=== PATIENT | male | born 1950 | race Caucasian/White ===

== ENCOUNTER 2017-03-16 09:36 | Emergency (ER) | payer MEDICARE, OTHER ==
[~2017-03-16] VITALS: Ht 175.3 cm; Wt 98.9 kg
[~2017-03-16 09:36] MED LIST: MSL400TEC; OMEP20CA12; PREDNISONE; PRX20T; SIMV40TA2
[2017-03-16] MEDS ORDERED: ASPIRIN 81 MG CHEW (CHILDREN'S ASA) PO ONE (09:45)
[2017-03-16] MEDS ORDERED: RX-NITROGLYCERIN 0.4 MG TAB BTL 25'S SL ONE (09:45)
[2017-03-16 09:55] LABS: BASOPHILS % (AUTO) 0 % (0-10); EOSINOPHILS # (AUTO) 0.2 10^3/uL (0.0-0.3); EOSINOPHILS % (AUTO) 3 % (0-10); LYMPHOCYTES # (AUTO) 2.4 X 10^3 (1.0-4.0); LYMPHOCYTES % (AUTO) 40 % (12-44); MEAN CORPUSCULAR HEMOGLOBIN 30 PG (25-34); MEAN CORPUSCULAR HGB CONC 33 G/DL (32-36); MEAN CORPUSCULAR VOLUME 89 FL (80-99); MEAN PLATELET VOLUME 9.1 FL (7.4-10.4); MONOCYTES # (AUTO) 0.4 X 10^3 (0.0-1.0); MONOCYTES % (AUTO) 8 % (0-12); NEUTROPHILS # (AUTO) 2.9 X 10^3 (1.8-7.8); NEUTROPHILS % (AUTO) 49 % (42-75); PLATELET COUNT 270 10^3/uL (130-400); RED CELL DISTRIBUTION WIDTH 13.2 % (10.0-14.5); WHITE BLOOD COUNT 5.8 10^3/uL (4.3-11.0)
[2017-03-16] MEDS ORDERED: RX-NITROGLYCERIN 0.4 MG TAB BTL 25'S SL PRN (10:00)
[2017-03-16 10:12] LABS: INR 0.9 (0.8-1.4); PROTHROMBIN TIME PATIENT 12.2 SEC (12.2-14.7)
--- NOTE | 2017-03-16 10:12 | ED Chest Pain ---
General Chief Complaint: Chest Pain Stated Complaint: CP Nursing Triage Note: PT TO ROOM 5 SENT TO ED BY [facility], PT HAVING CHEST PAIN FOR A FEW DAYS HAS TIGHTNESS AND WEAKNESS IN ARMS BILATERALLY. Nursing Sepsis Screen: No Definite Risk Source: patient Exam Limitations: no limitations History of Present Illness Time seen by provider: 09:37 Initial Comments Here with report of central chest pressure and bilateral arm weakness that has occurred several times over the last week and usually only lasts for less than a minute but today is lasted for some time up to an hour. Does report some dizziness but no nausea or vomiting. Denies diaphoresis. Did present to the [facility] and was sent here for further evaluation related to the chest pain. States that he still has some mild discomfort currently. Timing/Duration: 1 week, intermittent Severity/Quality: mild, moderate, pressure, tightness Location: central Radiation: arms Activities at Onset: none Prior CP/Workup: cardiac cath Modifying Factors: improves with rest ASA po ENVIRONMENTAL ENGINEERING INTERN: No NTG SL ENVIRONMENTAL ENGINEERING INTERN: No Associated Symptoms: No back pain, No shortness of breath Allergies and Home Medications Allergies Coded Allergies: Codeine (Verified Allergy, Unknown, 03/17/08) Home Medications Mesalamine 400 Mg Tab, (Reported) Omeprazole 20 Mg Capsule., (Reported) Simvastatin 40 Mg Tablet, (Reported) Review of Systems Constitutional: see HPI, No chills, No fever EENTM: No Symptoms Reported Respiratory: No Symptoms Reported Cardiovascular: No Symptoms Reported Gastrointestinal: See HPI, Abdominal Pain, Diarrhea, Nausea, Vomiting Genitourinary: No Symptoms Reported Musculoskeletal: no symptoms reported Skin: no symptoms reported All Other Systems Reviewed Negative Unless Noted: Yes Past Kcijhnt-Lzgjbs-Hzbmmw Hx Patient Social History Alcohol Use: Denies Use Recreational Drug Use: No Smoking Status: Never a Smoker Recent Foreign Travel: No Contact w/Someone Who Travel: No Recent Infectious Disease Expo: No Recent Hopitalizations: No Surgeries HX Surgeries: No Respiratory Hx Respiratory Disorders: No Cardiovascular Hx Cardiac Disorders: Yes Cardiac Disorders: Hypertension Neurological Hx Neurological Disorders: Yes Reproductive System Hx Reproductive Disorders: No Genitourinary Hx Genitourinary Disorders: No Gastrointestinal Hx Gastrointestinal Disorders: Yes Gastrointestinal Disorders: Gastroesophageal Reflux Musculoskeletal Hx Musculoskeletal Disorders: Yes Endocrine Hx Endocrine Disorders: No HEENT HX ENT Disorders: Yes Psychosocial Hx Psychiatric Problems: Yes Blood Transfusions Hx Blood Disorders: Yes Reviewed Nursing Assessment Reviewed/Agree w Nursing PMH: Yes Family Medical History Significant Family History: No Pertinent Family Hx Physical Exam Vital Signs Vital Sign - Last 12Hours 03/16/17 09:40 Temp 96.9 Pulse 73 Resp 18 B/P (MAP) 165/82 Pulse Ox 98 Capillary Refill : Less Than 3 Seconds General Appearance: No Apparent Distress, WD/WN HEENT: PERRL/EOMI, Pharynx Normal Neck: Non Tender, Supple Respiratory: Lungs Clear, Normal Breath Sounds Cardiovascular: Regular Rate, Rhythm, No Murmur Gastrointestinal: Non Tender, Soft Extremity: Normal Range of Motion, Non Tender Neurologic/Psychiatric: Alert, Oriented x3 Skin: Normal Color, Warm/Dry Progress/Results/Core Measures Results/Orders Lab Results Laboratory Tests Test 03/16/17 09:40 03/16/17 12:30 Range/Units White Blood Count 5.8 4.3-11.0 10^3/uL Red Blood Count 5.10 4.35-5.85 10^6/uL Hemoglobin 15.1 13.3-17.7 G/DL Hematocrit 45 40-54 % Mean Corpuscular Volume 89 80-99 FL Mean Corpuscular Hemoglobin 30 25-34 PG Mean Corpuscular Hemoglobin Concent 33 32-36 G/DL Red Cell Distribution Width 13.2 10.0-14.5 % Platelet Count 270 130-400 10^3/uL Mean Platelet Volume 9.1 7.4-10.4 FL Neutrophils (%) (Auto) 49 42-75 % Lymphocytes (%) (Auto) 40 12-44 % Monocytes (%) (Auto) 8 0-12 % Eosinophils (%) (Auto) 3 0-10 % Basophils (%) (Auto) 0 0-10 % Neutrophils # (Auto) 2.9 1.8-7.8 X 10^3 Lymphocytes # (Auto) 2.4 1.0-4.0 X 10^3 Monocytes # (Auto) 0.4 0.0-1.0 X 10^3 Eosinophils # (Auto) 0.2 0.0-0.3 10^3/uL Basophils # (Auto) 0.0 0.0-0.1 10^3/uL Prothrombin Time 12.2 12.2-14.7 SEC INR Comment 0.9 0.8-1.4 Activated Partial Thromboplast Time 28 24-35 SEC D-Dimer 0.30 0.00-0.49 UG/ML Sodium Level 139 135-145 MMOL/L Potassium Level 3.9 3.6-5.0 MMOL/L Chloride Level 105 98-107 MMOL/L Carbon Dioxide Level 24 21-32 MMOL/L Anion Gap 10 5-14 MMOL/L Blood Urea Nitrogen 15 7-18 MG/DL Creatinine 1.13 0.60-1.30 MG/DL Estimat Glomerular Filtration Rate > 60 BUN/Creatinine Ratio 13 Glucose Level 92 70-105 MG/DL Calcium Level 10.0 8.5-10.1 MG/DL Magnesium Level 2.3 1.8-2.4 MG/DL Total Bilirubin 0.5 0.1-1.0 MG/DL Aspartate Amino Transf (AST/SGOT) 27 5-34 U/L Alanine Aminotransferase (ALT/SGPT) 23 0-55 U/L Alkaline Phosphatase 76 40-136 U/L Myoglobin 72.9 55.6 10.0-92.0 NG/ML Troponin I < 0.30 < 0.30 <0.30 NG/ML Total Protein 7.7 6.4-8.2 GM/DL Albumin 4.8 H 3.2-4.5 GM/DL My Orders Orders - FREEMAN GARZON MD Cbc With Automated Diff (03/16/17 09:39) Magnesium (03/16/17 09:39) Chest 1 View, Ap/Pa Only (03/16/17 09:39) Ekg Tracing (03/16/17 09:39) Cardiac Profile 1 (03/16/17 09:39) Comprehensive Metabolic Panel (03/16/17 09:39) Myoglobin Serum (03/16/17 09:39) Protime With Inr (03/16/17 09:39) Partial Thromboplastin Time (03/16/17 09:39) O2 (03/16/17 09:39) Monitor-Rhythm Ecg Trace Only (03/16/17 09:39) Lipid Panel (03/17/17 06:00) Saline Lock/Iv-Start (03/16/17 09:39) Fibrin Degradation Products (03/16/17 09:39) Aspirin Chewable Tablet (Baby Aspirin Ch (03/16/17 09:45) Rx-Nitroglycerin Sl Tabs (Rx-Nitrostat S (03/16/17 09:45) Rx-Nitroglycerin Sl Tabs (Rx-Nitrostat S (03/16/17 10:00) Troponin I (03/16/17 12:31) Ekg Tracing (03/16/17 12:31) Myoglobin Serum (03/16/17 12:31) Medications Given in ED Current Medications Medications Dose Ordered Sig/Jesus Route Start Time Stop Time Status Last Admin Dose Admin Aspirin 324 mg ONCE ONCE PO 03/16/17 09:45 03/16/17 09:46 DC 03/16/17 09:00 324 MG Vital Signs/I&O Vital Sign - Last 12Hours 03/16/17 09:40 Temp 96.9 Pulse 73 Resp 18 B/P (MAP) 165/82 Pulse Ox 98 Blood Pressure Mean: 109 Progress Note : Progress Note Seen and evaluated. IV, labs, EKG and chest x-ray ordered. ASA 324 mg by mouth ordered. Nitroglycerin sublingual ordered. Monitor patient. Monitored patient throughout ER stay. 1115: No acute findings and no return of pain. Labs negative. Patient does not really want to stay as [facility] We will do repeat troponin and EKG at 1230. 1335: Repeat EKG and troponin as well as myoglobin and evaluated. No acute findings and no elevations noted. Discharged home with return precautions. Patient counseled extensively on the need for follow-up. Also recommended baby aspirin daily until seen by his doctor. Patient verbalize understanding instructions and agreement with plan. ECG Initial ECG Impression Date: Mar 16, 2017 Initial ECG Impression Time: 09:42 Initial ECG Rate: 71 Initial ECG Rhythm: Normal Sinus Initial ECG Impression: Normal Initial ECG Comparisson: Unchanged Comment Sinus rhythm with normal axis. No evidence of ST elevation NC. Similar to previous of 05/13/2008. Interpreted by me. EKG : EKG Time: 12:39 Rate: 53 Rhythm: Normal Sinus ECG Comparisson: Unchanged ECG Impression: Normal Comment Normal sinus rhythm with normal axis. No evidence of ST elevation NC. Similar to previous. Interpreted by me. Departure Impression Impression: Primary Impression: Chest pain Qualified Codes: R07.9 - Chest pain, unspecified Disposition: 01 HOME, SELF-CARE Condition: Stable Departure-Patient Inst. Decision time for Depature: 13:12 Referrals: [facility] (PCP/Family) Primary Care Physician DANTE MCCLELLAND MD FACP [facility] CCDS Sirisha FUENTES MD, BASHAR J MD Patient Instructions: Chest Pain (DC) Add. Discharge Instructions: All discharge instructions reviewed with patient and/or family. Voiced understanding. Continue home medications as directed. [facility] and set up appointment for further evaluation of your chest pain including stress test and/ or heart catheter procedure as needed. You may follow-up with Dr. Mcclelland or one of the other line fixer listed if [facility] approves. You should be seen within one week regardless of which system review follow-up in. Return for worse pain , fever, vomiting, weakness, breathing problems or other concerns as needed. FREEMAN GARZON MD Mar 16, 2017 10:12
[2017-03-16 10:22] LABS: ALANINE AMINOTRANSFERASE 23 U/L (0-55); ALBUMIN 4.8 GM/DL (3.2-4.5); ANION GAP 10 MMOL/L (5-14); ASPARTATE AMINO TRANSFERASE 27 U/L (5-34); BILIRUBIN,TOTAL 0.5 MG/DL (0.1-1.0); BLOOD UREA NITROGEN 15 MG/DL (7-18); BUN/CREATININE RATIO 13; CARBON DIOXIDE 24 MMOL/L (21-32); CHLORIDE 105 MMOL/L (98-107); CREATININE SERUM 1.13 MG/DL (0.60-1.30); GFR ESTIMATED > 60; GLUCOSE 92 MG/DL (70-105); MAGNESIUM 2.3 MG/DL (1.8-2.4); POTASSIUM 3.9 MMOL/L (3.6-5.0); SODIUM 139 MMOL/L (135-145); TOTAL PROTEIN 7.7 GM/DL (6.4-8.2)
--- NOTE | 2017-03-16 10:27 | Diagnostic Imaging Report ---
EXAMINATION: Portable erect AP chest at 1006h. INDICATION: Chest pain The heart size is within normal limits and stable when compared to 03/17/08. The coarse perihilar markings seen on the previous study are again evident and no different. There is still no sign of failure, pneumonia or pleural effusion to suggest an acute abnormality. The mediastinum is not widened. The osseous structures are intact. IMPRESSION: There is no evidence for active disease. Dictated by: Dictated on workstation # [id number]
[2017-03-16 10:31] LABS: MYOGLOBIN SERUM 72.9 NG/ML (10.0-92.0)
[2017-03-16 13:10] LABS: MYOGLOBIN SERUM 55.6 NG/ML (10.0-92.0); TROPONIN I < 0.30 NG/ML (<0.30)
[2017-03-16 13:44] VITALS: BP 165/82
== END 2017-03-16 13:44 | disposition home or self-care (01) ==
LOC: EDUNIT# 09:36 → ER 09:39
DX: R07.89 Other chest pain (principal); I10 Essential (primary) hypertension; K21.9 Gastro-esophageal reflux disease without esophagitis
CPT/HCPCS: 36415; 71010; 80053; 83735; 83874; 84484; 85025; 85379; 85610; 85730; 93041

== ENCOUNTER 2017-03-22 12:00 | Day surgery (SDC) | payer MEDICARE, OTHER ==
[~2017-03-22] VITALS: Ht 175.3 cm; Wt 100.7 kg
[2017-03-22] VITALS (7 sets, daily range): BP systolic 115–131; BP diastolic 41–67
[2017-03-22] MEDS ORDERED: NS IV 1000 ML 1,000 ML ONE (12:10)
[2017-03-22] MEDS ORDERED: HEParin (CATH LAB) 2,000 ML IV ONE (12:10)
--- OUTSIDE RECORDS SUMMARY | 2017-03-22 12:27 | XMS REPORT | Continuity of Care Document ---
Author Author [facility] Address Unknown Phone Unavailable Allergies Active Description Code Type Severity Reaction Onset Reported/Identified Relationship to Patient Clinical Status Yes codeine Drug Allergy N/A N/A 11/25/2014 Medications Problems Date Dx Coded Attending Type Code Diagnosis Diagnosed By 11/25/2014 MARILYN PEOPLES APRN 461.9 SINUSITIS ACUTE 11/25/2014 MARILYN PEOPLES APRN 786.2 COUGH Procedures Results Encounters ACCT No. Visit Date/Time Discharge Status Pt. Type Provider Facility Loc./Unit Complaint [id number] 11/25/2014 13:15:00 11/25/2014 23: 59:59 CLS Outpatient MARILYN PEOPLES APRN
[2017-03-22] MEDS ORDERED: NS IV 1000 ML 1,000 ML IV SCH ×2 (12:30→18:11)
[2017-03-22 12:43] LABS: MEAN PLATELET VOLUME 9.4 FL (7.4-10.4); RED BLOOD COUNT 4.96 10^6/uL (4.35-5.85); RED CELL DISTRIBUTION WIDTH 13.3 % (10.0-14.5); WHITE BLOOD COUNT 7.7 10^3/uL (4.3-11.0)
[2017-03-22 12:54] LABS: INR 0.9 (0.8-1.4); PROTHROMBIN TIME PATIENT 12.4 SEC (12.2-14.7)
[2017-03-22] MEDS ORDERED: ASPI-586 PO (13:02)
[2017-03-22] MEDS ORDERED: METO-352 PO (13:02)
[2017-03-22 13:03] LABS: ALANINE AMINOTRANSFERASE 19 U/L (0-55); ALBUMIN 4.4 GM/DL (3.2-4.5); ANION GAP 11 MMOL/L (5-14); ASPARTATE AMINO TRANSFERASE 21 U/L (5-34); BILIRUBIN,TOTAL 0.4 MG/DL (0.1-1.0); BLOOD UREA NITROGEN 19 MG/DL (7-18); BUN/CREATININE RATIO 16; CALCIUM 9.4 MG/DL (8.5-10.1); CARBON DIOXIDE 23 MMOL/L (21-32); CHLORIDE 107 MMOL/L (98-107); CHOLESTEROL 200 MG/DL (< 200); CREATININE SERUM 1.17 MG/DL (0.60-1.30); DIRECT LDL 129 MG/DL (1-129); GFR ESTIMATED > 60; GLUCOSE 94 MG/DL (70-105); POTASSIUM 4.2 MMOL/L (3.6-5.0); SODIUM 141 MMOL/L (135-145); TRIGLYCERIDES 101 MG/DL (<150); VLDL CHOLESTEROL 20 MG/DL (5-40)
[2017-03-22] MEDS ORDERED: MIDAZOLAM 5 MG/5 ML (VERSED) VIAL ONE (16:31)
[2017-03-22] MEDS ORDERED: diphenhydrAMINE 50 MG/ML INJ (BENADRYL) ONE (16:31)
[2017-03-22] MEDS ORDERED: fentaNYL INJECTION 100 MCG/2 ML AMP ONE (16:31)
--- NOTE | 2017-03-22 17:20 | Cardiac Procedure Note-CS/ASA ---
Pre-Procedure Note Pre-Op Procedure Note H&P Reviewed The H&P was reviewed, patient examined and no changes noted. Date H&P Reviewed: Mar 22, 2017 Time H&P Reviewed: 17:20 Conscious Sedation Pre-Proced Time Reviewed: 17:20 ASA Class: 2 Airway Mallampati Classification: ([place] ore[place] appropriate class) I. II. III, IV Lungs Heart ASA score ASA 1: a normal healthy patient ASA 2: a patient with a mild systemic disease (mid diabetes, controlled hypertension, obesity ASA 3: a patient with a severe systemic disease that limits activity (angina , COPD, prior Myocardial infarction) ASA 4: a patient with an incapacitating disease that is a constant threat to life (CHF, renal failure) ASA 5: a moribund patient not expected to survive 24 hrs. (ruptured aneurysm) ASA 6: a declared brain patient whose organs are being harvested. For emergent operations, add the letter E after the classification Grade 2 Sedation Plan: Analgesia, Amnesia, Plan communicated to team members, Discussed options with patient/fam, Discussed risks with patient/fam Note The patient is an appropriate candidate to undergo the planned procedure, sedation, and anesthesia. The patient immediately re-assessed prior to indication. DANTE ARMSTRONG MD FACP [facility]S Mar 22, 2017 17:20
[2017-03-22] MEDS ORDERED: PATIENT MAY USE OWN MEDS, ALL PO SCH (18:15)
--- NOTE | 2017-03-22 18:16 | Discharge Inst-Post CATH ---
Discharge Inst-CATH Post Cardiac Cath D/C Inst Follow Up/Plan F/u with Dr Mcclelland in 1-2 weeks CARDIAC CATH DISCHARGE INSTRUCTIONS *Hold Metformin for 48 hours post heart cath. ACTIVITY * Go Home directly and rest. * Limit activity of the leg (or wrist if it was used) for 7 days including aerobics, swimming, jogging, bicycling, etc. * Restrict stair-climbing for 7 days if possible, if not, climb up with your non -cath leg, then bring together on the same step. * Avoid lifting, pushing, pulling or excessive movement of the affected extremity for 7 days. * Customary sexual activity may be resumed after 2 days-use caution not to use a position that strains or causes pain to the affected extremity. * No driving for 24 hours. * NO SMOKING. * Avoid straining for bowel movements for 7 days. * Gentle walking on level ground is allowed. * Returning to work will depend on the type of procedure and the results. Your doctor will discuss this with you. CALL YOUR DOCTOR FOR ANY OF THE FOLLOWING: *If bleeding from the puncture site occurs- Apply gentle pressure to site with clean cloth and call your doctor or EMS. * If a knot or lump forms under the skin, increases in size, or causes pain. * If bruising appears to be worsening or moving further down your leg instead of disappearing. * Temperature above 101 F. CARE OF YOUR GROIN INCISION; * Bruising or purple discoloration of the skin near the puncture site is common. * You may shower only, no bathtub bathing for 5 days. Be careful to avoid slipping as your leg may feel stiff. * If a closure device was used on your femoral artery, please see the attached guide regarding care of the device and your leg. * REMOVE the dressing from your groin the next day after your procedure in the shower. CARE OF YOUR WRIST INCISION; * Bruising or purple discoloration of the skin near the puncture site is common. * You may shower. * DO NOT submerge wrist. * Remove dressing in 24 hours. DANTE MCCLELLAND MD [facility] Mar 22, 2017 18:16
--- NOTE | 2017-03-22 18:17 | Discharge Inst-Cardiology ---
Discharge Inst-Cardiac Discharge Medications Continued Medications: Aspirin (Aspir 81) 81 Mg Tablet. 81 MG PO DAILY, TAB Metoprolol Succinate (Toprol Xl) 50 Mg Tab.er.24h 50 MG PO DAILY, TAB Omeprazole (Omeprazole) 20 Mg Capsule. Simvastatin (Zocor) 40 Mg Tablet DANTE ARMSTRONG MD FACP [facility] Mar 22, 2017 18:17
--- NOTE | 2017-03-22 20:10 | CARDIAC CATHETERIZATION ---
DATE OF SERVICE: 03/22/2017 HISTORY OF PRESENT ILLNESS: The patient is a 66-year-old man with coronary risk factors who has been experiencing chest discomfort and some symptoms suggestive of new onset angina. Cardiac catheterization was carried out today after having obtained informed consent. PROCEDURE: He was brought to the cardiac catheterization laboratory in a fasting state. Right groin was prepared and draped in the usual sterile fashion, 1% lidocaine local anesthesia modified Seldinger technique was used to advance a 5-Maldivian sheath to the right femoral artery. A 5-Maldivian JL4 catheter, left coronary angiography; 5-Maldivian JR4 catheter, right coronary angiography; 5-Maldivian pigtail catheter, left heart catheterization, left ventricular angiography. Pigtail was pulled back to the aortic root and aortic root angiography was performed with runoff down the thoracic aorta into the abdominal aorta. This suggested the presence of a distal abdominal aortic aneurysm. Therefore, we proceeded with abdominal aortic angiography as well. For this, we pulled the pigtail catheter down to the level of the mid abdominal aorta and an angiography was performed. He tolerated the procedure well. At the end of the procedure, angiography of the right femoral artery was carried out through the sheath and Mynx was used to achieve hemostasis. He tolerated the procedure well. HEMODYNAMICS: Left ventricular end-diastolic pressure following coronary angiography was 3 mmHg. There was no significant pressure gradient on pullback across the aortic valve. The ascending aortic pressure was 95/47 with a mean of 70 mmHg. CORONARY ANGIOGRAPHY: Mild coronary calcification is seen. Left main coronary artery is free of significant disease. Left anterior descending and left circumflex arteries have mild plaques. Right coronary artery is dominant and has mild plaques. LEFT VENTRICULAR ANGIOGRAPHY: Left ventricular angiography was carried out in the right anterior oblique projection. Global left ventricular systolic function is normal. No regional wall motion abnormalities seen. Left ventricular ejection fraction is approximately 60%. No regional wall motion abnormalities were seen. AORTIC ROOT ANGIOGRAPHY: Aortic root angiography does not indicate any significant thoracic aortic aneurysm or dissection or aortic regurgitation. Mild ascending aortic calcification is seen. The neck arteries, to the extent seen, did not exhibit significant disease. There was a suggestion of distal abdominal aortic aneurysm on this study and we proceeded with dedicated abdominal aortic angiography described below. ABDOMINAL AORTIC ANGIOGRAPHY: Abdominal aortic angiography indicates a moderate-sized distal abdominal aorta that extends from below the renal arteries to the aortoiliac junction. CONCLUSIONS: 1. Angiographically minor coronary artery disease. 2. Normal regional wall motion. 3. Normal global left ventricular systolic function with ejection fraction 65%. 4. Low normal left ventricular end-diastolic pressure. No significant mitral regurgitation. 5. Moderate-sized abdominal aortic aneurysm. DISCUSSION: Based on this study, it appears appropriate to continue a conservative approach. Further evaluation of abdominal aortic aneurysm is advised. Outpatient cardiac followup is advised. Risk factor modification has been reviewed. Job ID: [id number] DocumentID: [id number] Dictated Date: 03/22/2017 17:57:43 Tobacco Farmworker Date: 03/22/2017 20:09:25 Dictated By: DANTE ARMSTRONG MD, MA, FACP, FACC, MTDD
== END 2017-03-22 20:50 | disposition home or self-care (01) ==
LOC: CATH 12:00 → ICU 18:05 → CATH 20:50
PROVIDERS: ATTEND Internal Medicine Cardiovascular Disease
DX: R07.89 Other chest pain (principal); I25.10 Atherosclerotic heart disease of native coronary artery without angina pectoris; I25.84 Coronary atherosclerosis due to calcified coronary lesion; I71.4 Abdominal aortic aneurysm, without rupture; Z82.49 Family history of ischemic heart disease and other diseases of the circulatory system; Z87.891 Personal history of nicotine dependence; E78.5 Hyperlipidemia, unspecified; Z79.899 Other long term (current) drug therapy
CPT/HCPCS: 36415; 75625; 80053; 80061; 85027; 85610; 85730; 87081; 93005; 93458; 93567

== ENCOUNTER → 2017-12-22 | Outpatient (CLI) | payer MEDICARE, OTHER ==
[~2017-12-22] MED LIST changes: +ASPI-586 PO; +METO-352 PO
== END ==
LOC: RAD 09:50
PROVIDERS: ATTEND Pediatrics
DX: Z53.8 Procedure and treatment not carried out for other reasons (principal); Z13.820 Encounter for screening for osteoporosis

== ENCOUNTER → 2018-05-02 | Outpatient (CLI) | payer MEDICARE, OTHER | LOC: RAD 07:41 | PROVIDERS: ATTEND Nurse Practitioner | DX: M75.101 Unspecified rotator cuff tear or rupture of right shoulder, not specified as traumatic (principal); M75.102 Unspecified rotator cuff tear or rupture of left shoulder, not specified as traumatic; M77.11 Lateral epicondylitis, right elbow; Z53.9 Procedure and treatment not carried out, unspecified reason ==

== ENCOUNTER 2018-10-23 11:30 | Outpatient (RCR) | payer OTHER | END 2018-11-06 10:12 | disposition home or self-care (01) | PROVIDERS: ATTEND Orthopaedic Surgery | DX: M75.121 Complete rotator cuff tear or rupture of right shoulder, not specified as traumatic (principal) ==

== ENCOUNTER 2020-12-11 15:47 | Outpatient (RCR) | payer OTHER | END 2021-01-11 | disposition home or self-care (01) | PROVIDERS: ATTEND Nurse Practitioner | DX: M79.662 Pain in left lower leg (principal); M76.02 Gluteal tendinitis, left hip ==

== ENCOUNTER 2021-05-04 10:39 | Outpatient (RCR) | payer OTHER | END 2021-05-12 | disposition home or self-care (01) | PROVIDERS: ATTEND Nurse Practitioner | DX: M25.552 Pain in left hip (principal); J43.9 Emphysema, unspecified ==

== ENCOUNTER 2021-06-26 05:33 | Outpatient (RCR) | payer OTHER ==
[~2021-06-26] VITALS: Ht 175.3 cm; Wt 93.0 kg
[~2021-06-26 05:33] MED LIST changes: +ATOR40TA70 PO
== END 2021-06-29 11:52 | disposition home or self-care (01) ==
LOC: PREOP 05:33
PROVIDERS: ATTEND Surgery
DX: Z01.812 Encounter for preprocedural laboratory examination (principal); K21.9 Gastro-esophageal reflux disease without esophagitis; Z20.822 Contact with and (suspected) exposure to COVID-19
CPT/HCPCS: 87635

== ENCOUNTER 2021-06-29 08:50 | Day surgery (SDC) | payer OTHER ==
[~2021-06-29] VITALS: Ht 175.3 cm; Wt 96.4 kg
[2021-06-29] MEDS ORDERED: LACTATED RINGERS 1,000 ML IV ONE (08:56)
[2021-06-29] MEDS ORDERED: LACTATED RINGERS 1,000 ML IV STA (08:59)
[2021-06-29] MEDS ORDERED: HURRICAINE EXT TUBE (BENZOCAINE) XX PRN (09:00)
--- NOTE | 2021-06-29 09:18 | Progress Note-Pre Operative ---
Pre-Operative Progress Note H&P Reviewed The H&P was reviewed, patient examined and no changes noted. Time Seen by Provider: 09:17 Date H&P Reviewed: Jun 29, 2021 Time H&P Reviewed: 09:17 Pre-Operative Diagnosis: JAMES EMANUEL DO Jun 29, 2021 09:18
[2021-06-29 09:25] VITALS: BP 133/70
[2021-06-29] MEDS ORDERED: MIDAZOLAM 2 MG/2 ML (VERSED) VIAL ONE (09:53)
[2021-06-29] MEDS ORDERED: proPOfol 200 MG/20 ML (DIPRIVAN) VIAL IV ONE (09:53)
[2021-06-29 10:10] VITALS: BP 113/58
--- NOTE | 2021-06-29 10:10 | Progress Note-Post Operative ---
Post-Operative Progess Note Surgeon (s)/Health Facilities Surveyor (s) Surgeon JAMES BERRY DO Health Facilities Surveyor: none Pre-Operative Diagnosis GERD Post-Operative Diagnosis Gastric ulcers Hiatal hernia Mild esophagitis Procedure & Operative Findings Date of Procedure 06/29/21 Procedure Performed/Findings EGD with bx PROCEDURE NOTE: After informed consent was obtained, the patient was brought to the endoscopy suite, placed in bed in left lateral decubitus position. He was administered IV sedation by the FINANCIAL COMPLIANCE EXAMINER who then monitored vitals the entire time, heart rate, blood pressure and pulse ox and the scope was inserted down the mouth through the esophagus into the stomach. On the way down, noted some small polyps in the esophagus; took a picture. Pushed into the stomach and noted ulcers just before the pylorus and took another picture. Pushed past the antrum into the duodenum. Duodenum looked good. Pulled back and did a biopsy of the antral ulcers. Then retroflexed the scope, saw a 1cm hiatal hernia, took a picture of this and then pulled the scope into the GE junction, took another picture of the hiatal hernia and then did a biopsy of the GE junction. Pushed the scope back into the stomach, suctioned all the air out of the stomach. At this point pulled the scope up the esophagus and out the mouth. The patient tolerated the procedure, and he recovered in endoscopy suite. Anesthesia Type IV sedation by FINANCIAL COMPLIANCE EXAMINER Estimated Blood Loss Estimated blood loss (mL): scant Specimens/Packing Specimens Removed antral ulcer bx Body of stomach bx GE jxn bx JAMES BERRY DO Jun 29, 2021 10:10
--- NOTE | 2021-06-29 10:11 | Endoscopy Discharge Instruct ---
Endo Procedure/Findings Findings 1.: Gastric Ulcer 2.: Hiatal Hernia 3.: Other Findings (mild esophagitis) Discharge Instructions - Activity: You might feel a little sleepy until tomorrow. This is due to the medicine you received to relax you. Until tomorrow, you should: NOT drive a car, operate machinery or power tools. NOT drink any alcoholic beverages. NOT make any important decisions or sign importortant papers. Do not return to work until tomorrow, unless otherwise instructed. Resume previous activities tomorrow. Diet: Start by taking liquids. If you tolerate liquids, advance to solid food. 1.: Other Recommendation (EGD in 6 months) Notify Physician - If you experience excessive bleeding, unusual abdominal pain, fever, or chest pain, contact your doctor immediately. JAMES BERRY DO Jun 29, 2021 10:11
[2021-06-29 10:15] VITALS: BP 110/56
[2021-06-29 10:20] VITALS: BP 107/61
--- NOTE | 2021-06-29 10:20 | Anesthesia-General Post-Op ---
MAC Patient Condition Mental Status/LOC: Same as Preop Cardiovascular: Satisfactory Nausea/Vomiting: Absent Respiratory: Satisfactory Pain: Controlled Complications: Absent Post Op Complications Complications None Follow Up Care/Instructions Patient Instructions None needed. Anesthesiology Discharge Order Discharge Order Patient is doing well, no complaints, stable vital signs, no apparent adverse anesthesia problems. No complications reported per nursing. MARU MANN GIFT SHOP MANAGER Jun 29, 2021 10:20
[2021-06-29 10:40] VITALS: BP 98/69
[2021-06-29 10:55] VITALS: BP 98/69
== END 2021-06-29 10:55 | disposition home or self-care (01) ==
LOC: ENDO 08:50
PROVIDERS: ATTEND Surgery
DX: K21.00 Gastro-esophageal reflux disease with esophagitis, without bleeding (principal); K44.9 Diaphragmatic hernia without obstruction or gangrene; K29.50 Unspecified chronic gastritis without bleeding; K29.00 Acute gastritis without bleeding; I10 Essential (primary) hypertension; J44.9 Chronic obstructive pulmonary disease, unspecified; Z79.1 Long term (current) use of non-steroidal anti-inflammatories (NSAID); Z79.891 Long term (current) use of opiate analgesic; Z79.899 Other long term (current) drug therapy; Z87.891 Personal history of nicotine dependence
CPT/HCPCS: 88305

== ENCOUNTER 2022-08-30 14:57 | Outpatient (RCR) | payer OTHER | END 2022-08-31 | disposition home or self-care (01) | PROVIDERS: ATTEND Orthopaedic Surgery | DX: M25.511 Pain in right shoulder (principal); Z96.611 Presence of right artificial shoulder joint ==

== ENCOUNTER 2022-09-27 09:38 | Outpatient (RCR) | payer OTHER | END 2022-09-28 | disposition home or self-care (01) | PROVIDERS: ATTEND Orthopaedic Surgery | DX: Z96.611 Presence of right artificial shoulder joint (principal) ==

== ENCOUNTER 2022-10-14 11:01 | Outpatient (RCR) | payer OTHER | END 2022-10-14 12:03 | disposition home or self-care (01) | PROVIDERS: ATTEND Orthopaedic Surgery | DX: M25.511 Pain in right shoulder (principal); Z96.611 Presence of right artificial shoulder joint ==

== ENCOUNTER 2022-11-18 12:42 | Outpatient (CLI) | payer OTHER ==
[~2022-11-18] VITALS: Ht 175.3 cm; Wt 95.3 kg
[2022-11-18] MEDS ORDERED: METO-333 PO (15:10)
[2022-11-18] MEDS ORDERED: ATOR80TA76 PO (15:10)
[2022-11-18] MEDS ORDERED: OMEP20CA18 PO (15:10)
== END 2022-11-18 15:13 | disposition home or self-care (01) ==
LOC: PREOP 12:42
PROVIDERS: ATTEND Surgery
DX: Z01.818 Encounter for other preprocedural examination (principal)

== ENCOUNTER 2022-11-19 09:34 | Outpatient (RCR) | payer OTHER ==
[~2022-11-19 09:34] MED LIST changes: +ATOR80TA76 PO; +METO-333 PO; +OMEP20CA18 PO
== END 2022-11-28 | disposition home or self-care (01) ==
PROVIDERS: ATTEND Orthopaedic Surgery
DX: Z96.611 Presence of right artificial shoulder joint (principal)

== ENCOUNTER 2022-11-29 09:23 | Day surgery (SDC) | payer OTHER ==
[~2022-11-29] VITALS: Ht 175 cm; Wt 95.3 kg
[2022-11-29] MEDS ORDERED: LACTATED RINGERS 1,000 ML IV STA (09:26)
[2022-11-29] MEDS ORDERED: HURRICAINE EXT TUBE (BENZOCAINE) XX PRN (09:30)
[2022-11-29 09:35] VITALS: BP 136/60
--- NOTE | 2022-11-29 09:54 | Progress Note-Pre Operative ---
Pre-Operative Progress Note Date of Available H&P: Nov 16, 2022 Date H&P Reviewed: November 29, 2022 Time H&P Reviewed: 09:54 History & Physical: H&P Reviewed, Patient Examed, No changes noted Pre-Operative Diagnosis: Hx of Gastric Ulcer JAMES BERRY DO November 29, 2022 09:54
[2022-11-29] MEDS ORDERED: PROPOFOL INJECTION 50 ML IV ONE (10:57)
--- NOTE | 2022-11-29 11:12 | Anesthesia-General Post-Op ---
MAC Patient Condition Mental Status/LOC: Same as Preop Cardiovascular: Satisfactory Nausea/Vomiting: Absent Respiratory: Satisfactory Pain: Controlled Complications: Absent Post Op Complications Complications None Follow Up Care/Instructions Patient Instructions None needed. Anesthesiology Discharge Order Discharge Order Patient is doing well, no complaints, stable vital signs, no apparent adverse anesthesia problems. No complications reported per nursing. DANNY BOO CRNA November 29, 2022 11:12
--- NOTE | 2022-11-29 11:13 | Progress Note-Post Operative ---
Post-Operative Progess Note Surgeon (s)/Mold Carpenter (s) Surgeon JAMES BERRY DO Mold Carpenter: none Pre-Operative Diagnosis Hx of Gastric Ulcer Post-Operative Diagnosis Gastritis Hiatal hernia Esophagitis Procedure & Operative Findings Date of Procedure 11/29/22 Procedure Performed/Findings EGD with biopsy PROCEDURE NOTE: After informed consent was obtained, the patient was brought to the endoscopy suite, placed in bed in left lateral decubitus position. He was administered IV sedation by the CHANNEL DIRECTOR who then monitored vitals the entire time, heart rate, blood pressure and pulse ox and the scope was inserted down the mouth through the esophagus into the stomach. On the way down, noted some mild esophagitis, took a picture, pushed into the stomach, pushed past the antrum into the duodenum. Duodenum looked good. Pulled back and did a biopsy of antrum, then retroflexed the scope, saw a small 1cm AFS grade III hiatal hernia, took a picture of this and then pulled the scope into the GE junction, took another picture of the hiatal hernia and then did a biopsy of the GE junction. Pushed the scope back into the stomach, suctioned all the air out of the stomach. At this point pulled the scope up the esophagus and out the mouth. The patient tolerated the procedure, and he recovered in endoscopy suite. Anesthesia Type IV sedation by CHANNEL DIRECTOR Estimated Blood Loss Estimated blood loss (mL): scant Specimens/Packing Specimens Removed antral bx GE jxn bx JAMES BERRY DO November 29, 2022 11:13
--- NOTE | 2022-11-29 11:14 | Endoscopy Discharge Instruct ---
Endo Procedure/Findings Findings 1.: Gastritis 2.: Hiatal Hernia Discharge Instructions - Activity: You might feel a little sleepy until tomorrow. This is due to the medicine you received to relax you. Until tomorrow, you should: NOT drive a car, operate machinery or power tools. NOT drink any alcoholic beverages. NOT make any important decisions or sign importortant papers. Do not return to work until tomorrow, unless otherwise instructed. Resume previous activities tomorrow. Diet: Start by taking liquids. If you tolerate liquids, advance to solid food. 1.: EGD in 3 years Notify Physician - If you experience excessive bleeding, unusual abdominal pain, fever, or chest pain, contact your doctor immediately. Follow-Up: Other Follow up in my office in one week JAMES BERRY DO November 29, 2022 11:14
[2022-11-29 11:15] VITALS: BP 117/56
[2022-11-29 11:20] VITALS: BP 117/56
[2022-11-29 11:40] VITALS: BP 117/56
== END 2022-11-29 11:39 | disposition home or self-care (01) ==
LOC: ENDO 09:23
PROVIDERS: ATTEND Surgery
DX: K29.70 Gastritis, unspecified, without bleeding (principal); K44.9 Diaphragmatic hernia without obstruction or gangrene; K21.00 Gastro-esophageal reflux disease with esophagitis, without bleeding; K31.89 Other diseases of stomach and duodenum; Z87.11 Personal history of peptic ulcer disease; Z87.891 Personal history of nicotine dependence